=== PATIENT | female | born 2000 | race Caucasian/White ===

== ENCOUNTER 2023-09-15 09:47 | Emergency (ER) | payer BC, SELFPAY ==
[2023-09-15 09:53] VITALS: BP 130/85
--- NOTE | 2023-09-15 10:42 | ED.GENMED ---
History of Present Illness
General
Chief Complaint: Chest Pain
Source: patient and family
Exam Limitations: none
Time Seen by Provider: 09/15/23 10:29
Nursing documentation reviewed up to this point in time: agreed with
Travel History
Have you had any contact with someone who has COVID-19?: No
Do you have any symptoms of coronavirus? Fever > 100 degrees, chills, cough, shortness of breath, sore throat, loss of taste or smell, muscle aches, or headache?: No
History of Present Illness
History of Present Illness:
23-year-old female presents emergency department complaining of left shoulder pain, back chest pain while at work. She states she was lifting something and then got the pain, and then felt anxious which made her short of breath. She denies any
shortness of breath at this time.
Past History
Past History
ED Past Medical History: None
ED Past Surgical History: Cardiac
Social History
Tobacco: Non-smoker
Alcohol: None
Drug: Marijuana
Living: with family
Review of Systems
Review of Systems
Allergies reviewed?: Yes
All Other Systems: Not applicable
Constitutional: Reports no symptoms
EENT: Reports no symptoms
Respiratory: Reports no symptoms
Cardiac: Reports chest pain
ABD/GI: Reports no symptoms
: Reports no symptoms
Musculoskeletal: Reports no symptoms
Skin: Reports no symptoms
Neurological: Reports no symptoms
Endocrine: Reports no symptoms
Hematologic/Lymphatic: Reports no symptoms
Psychiatric: Reports no symptoms
Phy Exam
Physical Exam
Physical Exam:
Physical Exam
General: no apparent distress, not acutely ill
Neck: supple. no meningeal signs. normal posterior pharynx
Heart: s1/s2 regular rate and rhythm, no murmur. equal radial
pulses. Chest wall tender to palpation, reproducing pain
HEENT: Pupils equal round reactive to light, EOMI
Lungs: no acute respiratory distress. clear bilaterally
Abdomen: normal bowel sounds. not tender. no CVAT
Neuro: alert and oriented. no focal neurological deficits cranial nerves II through XII intact
Skin: no rash
Psychiatric: well kept. interactive and cooperative
Extremities: no edema. no calf tenderness. negative homans. good distal pulses, left shoulder/trapezius tender to palpation, worse with ROM
Scores
Heart Score for Chest Pain Patients
STEMI patient?: Not applicable
Course
Orders/Labs/Results
Orders:
Orders
09/15/23 09:50
Electrocardiogram (*1) Urgent
Reason for Study: Chest Pain
EKG- Treatment ONCE
Vital Signs
Initial and Last Documented VS:
Initial Vital Signs
Temp Pulse Resp BP Pulse Ox
98.8 F 65 16 130/85 98
09/15/23 09:53 09/15/23 09:53 09/15/23 09:53 09/15/23 09:53 09/15/23 09:53
Last Documented Vital Signs
Temp Pulse Resp BP Pulse Ox
98.8 F 65 16 130/85 98
09/15/23 09:53 09/15/23 09:53 09/15/23 09:53 09/15/23 09:53 09/15/23 09:53
MDM/Problems Addressed
Differential Diagnosis Includes:
Dysrhythmia, muscle strain, shoulder dislocation
MDM/Problems Addressed:
23-year-old female with left shoulder strain, normal EKG. Do not suspect ACS or PE. Stable for discharge.
Chronic conditions affecting care: Neurological disorder (Anxiety)
*Pulse Oximetry
Patient hypoxic: no
*EKG
Interpreted by ED Provider?: Yes
EKG Intrepretation Date: 09/15/23
EKG Intrepretation Time: 09:51
Interpretation: normal
Comparison EKG: no changes
Heart Rate: 66
Rate: normal
Rhythm: sinus
[place]: normal axis
Interval: normal interval
QRS Pattern: normal QRS
Ischemia: no ischemia
*[employer] Interpretation
Rate: normal
Interpretation: normal
Heart Rate: 65
Rhythm: sinus
*Critical Care Note
Total Time (30-74mins, 75-104mins- exclusive of procedures): Not Applicable
Data Reviewed
Further Testing Considered But Not Given:
labs not indicated
Patient Management
Social determinants of health affecting care: Living situation
Escalation/DeEscalation of care consider admission/obs:
admit not indicated
ED Attending Note
-
Portions of this chart may have been created with voice recognition software.� Occasional wrong word or��sound alike� substitutions may have occurred due to the inherent limitations of voice recognition software.
Discharge Plan
Departure
Patient Disposition: Home (Routine Discharge)
Date of Disposition: 09/15/23
Time of Disposition: 10:53
Patient with high blood pressure during this ER visit?: Yes
Condition: Good
Discharge Problem:
Chest pain, non-cardiac
Instructions: Chest Pain That Is Not Caused by the Heart (DC), Costochondritis (DC), BLOOD PRESSURE
Prescriptions:
No Action
tretinoin 0.025 % cream
1 applic TOPICAL BID
omeprazole 40 mg capsule,delayed release(DR/EC)
40 mg PO DAILY
metoprolol succinate 25 mg tablet extended release 24 hr
12.5 mg PO DAILY
mirtazapine 30 mg Tablet
30 mg PO HS
Referrals:
Nimo Mccoy, [Family Provider] - Call in 1-3 days for appt
Interventions
Interventions:
*Risk Screen - Suicide Last Done: 09/15/23 10:26
*General Assessment Last Done: 09/15/23 10:26
*Neglect/Abuse Screening Last Done: 09/15/23 10:26
ED- Fall Risk Assessment Last Done: 09/15/23 10:28
*ED COVID-19 Vaccine History Last Done: 09/15/23 09:53
ED- Cardiac Assessment Last Done: 09/15/23 10:28
[2023-09-15] MEDS: MOTRIN 600 MG PO (11:02)
[2023-09-15 11:10] VITALS: BP 115/74
[2023-09-15 11:11] VITALS: BP 115/74
== END 2023-09-15 11:14 | disposition home or self-care (01) ==
LOC: EMR 09:47
PROVIDERS: EMERGENCY PHYSICIAN Emergency Medicine; FAMILY PHYSICIAN Family Medicine
DX: R07.89 Other chest pain (principal); F41.9 Anxiety disorder, unspecified
CPT/HCPCS: 99283; 93005